=== PATIENT | male | born 1975 | race Caucasian/White ===

== ENCOUNTER 2024-07-26 11:08 | Inpatient (IN) ==
--- NOTE | 2024-07-26 11:33 | Emergency Department Note ---
Impression & Plan Atrial flutter with rapid ventricular response, Hypertension, Bilateral lower extremity edema ED Provider Note NAME: DEWEY US AGE: 48 SEX: M : 1975 ARRIVES VIA: Walk-In INFORMANT: Patient ED PROVIDER(S): Tanvir Strickland MD CHIEF COMPLAINT: Fast heart rate, referred PLAN: Disposition: Admit MEDICAL DECISION MAKING: The patient is a pleasant 48-year-old gentleman with a past medical history of hypertension who presents to the emergency department via walk-in accompanied by his referred by his PCP office for new onset atrial flutter with heart in the 160s in the setting of patient reporting generalized fatigue and noting swelling in his legs over the past couple weeks. Patient denies any sensation of palpitations, dizziness, chest pain. He denies any fevers, chills, cough, congestion, GI or symptoms. Patient reports he does consume alcohol in varying amounts and frequency. He reports that he has never experienced any withdrawal symptoms and has in the past year been able to go to days and up to a week without drinking any alcohol. Patient does report that he does regularly drink caffeine containing energy drinks. On evaluation the patient is in no distress, afebrile heart in the 160s and blood pressure 160s 120s and vital signs otherwise stable. He exhibits 1+ bilateral lower extremity pitting edema. Lungs are clear. EKG demonstrates atrial flutter with 2:1 AV conduction without overt acute ischemia. CXR with mild interstitial thickening suggestive of mild pulmonary edema in the setting of atrial flutter with RVR, per my personal preliminary review/interpretation. WBC within normal limits. H/H and platelets within normal limits. Chemistry without metabolic acidosis. Magnesium 1.5 with IV repletion initiated. Positivity troponin 8.7, within normal limits. BNP 108, nonspecific and marginally above upper limit of normal in the setting of the patient's atrial flutter with RVR. TSH within normal limits. Treatment was initiated with 5 mg of IV Lopressor x 3 without improvement in rate. Thus, patient was given 10 mg bolus of diltiazem and diltiazem drip initiated. Given the patient's new onset atrial flutter with RVR occurs in the setting of the patient not feeling any heart racing or palpitations unclear duration of this new arrhythmia. Patient does report some new symptoms of fatigue and leg swelling over the past couple weeks and so may at least be ongoing for that duration. Given the patient's blood pressure is stable no indication for emergent cardioversion. Heparin bolus and drip was ordered. Given patient's report of alcohol use with varying frequency and amounts IV thiamine was ordered. Additionally given 1 mg of IV Ativan given history of caffeine intake. Patient and his agree with plan for admission for further management. Case was discussed with Dr. Kam ROSENBAUM admitting resident, with JAYDON Stovall hospitalist who will evaluate the patient for admission. Further management per admitting team. Triage Nursing notes reviewed and agree them. Prior/external medical records reviewed Vital Signs: reviewed Differential diagnosis: Premature contractions, electrolyte abnormality, cardiac dysrhythmia, thyroid dysfunction, pulmonary embolism, infection, gastrointestinal, as well as other pathologies. ER treatment provided: See below. Diagnostics interpreted by me: ECG: Atrial flutter with 2: 1 AV conduction, nonspecific interventricular conduction delay, nonspecific T wave abnormality, no overt ST elevation or depression, QTc 403, QRS 124 Cardiac Monitoring: An order for continuous cardiac monitoring was placed and demonstrated Atrial flutter with 2: 1 AV conduction Laboratory studies: See below Imaging studies: See below Consultation(s): Dr. Kam ROSENBAUM admitting resident, with JAYDON Stovall hospitalist. HPI: Per MDM. ROS: See above HPI for pertinent positives & negatives. A total of 10 systems reviewed and were otherwise negative. VITALS:See Below PHYSICAL EXAMINATION: GENERAL: Awake, alert, in no distress, BMI 36.0. HENT: Normocephalic, atraumatic. Oropharynx unremarkable. EYES: Normal conjunctiva. Sclera non-icteric. NECK: Supple. No nuchal rigidity. FROM. No JVD. RESPIRATORY: Clear to auscultation. CARDIAC: Tachycardic rate, regular rhythm. Extremities warm and well perfused. Pulses equal. ABDOMEN: Soft, non-distended. No tenderness to palpation. No rebound or guarding. No masses. MUSCULOSKELETAL: Chest examination reveals no tenderness. The back is symmetrical on inspection without obvious abnormality. There is no CVA tenderness to palpation. No joint edema. LOWER EXTREMITIES: Calves are equal size bilaterally and non-tender. 1+ BLE edema. No discoloration. NEURO: Normal sensorium. No sensory or motor deficits noted. SKIN: No rash or jaundice noted. ED COURSE: Critical Care: I have personally spent greater than 45 minutes of critical care time in the direct management of this patient. This includes bedside care, interpretation of diagnostic studies, and testing, discussion with consultants, patient, and family members, and other required patient management activities. 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 Beliefs That Will Affect Care: None Current Living Situation: Spouse Other Information That Helps Us Care for You: No Feels Safe at Home: Yes Safety Concerns: Feels Safe At This Time Assistive Devices: None Allergies Allergies Allergy/AdvReac Type Severity Reaction Status Date / Time No Known Allergies Allergy Mild Unverified 10/05/06 15:44 Home Meds Home Medications Medication Instructions Recorded Confirmed lisinopril 20 mg tablet 20 mg PO DAILY 07/26/24 07/26/24 Results & Data (ED) Vital Signs Vital Signs - 24 hr 07/26/24 11:37 07/26/24 11:37 07/26/24 11:38 Pulse Rate 163 H Pulse Rate [Apical] 163 H Respiratory Rate 22 22 Respiratory Effort / Characteristics Non-Labored Respiratory Depth Normal Respiratory Pattern Regular Blood Pressure Blood Pressure [Right Arm] 163/119 H Blood Pressure Mean Blood Pressure Mean [Right Arm] 133 Pulse Oximetry 96 96 96 Oxygen Delivery Method Room Air Room Air Room Air 07/26/24 11:42 07/26/24 11:42 07/26/24 12:00 Pulse Rate 163 H 164 H 161 H Pulse Rate [Apical] Respiratory Rate 23 Respiratory Effort / Characteristics Respiratory Depth Respiratory Pattern Blood Pressure 163/119 H 143/101 H Blood Pressure [Right Arm] Blood Pressure Mean 122 Blood Pressure Mean [Right Arm] Pulse Oximetry 94 Oxygen Delivery Method 07/26/24 12:03 07/26/24 12:08 07/26/24 12:23 Pulse Rate 162 H 162 H 160 H Pulse Rate [Apical] Respiratory Rate Respiratory Effort / Characteristics Respiratory Depth Respiratory Pattern Blood Pressure 140/101 H 143/101 H 139/115 H Blood Pressure [Right Arm] Blood Pressure Mean Blood Pressure Mean [Right Arm] Pulse Oximetry Oxygen Delivery Method 07/26/24 12:24 07/26/24 12:30 07/26/24 13:00 Pulse Rate 160 H 158 H 157 H Pulse Rate [Apical] Respiratory Rate 23 Respiratory Effort / Characteristics Respiratory Depth Respiratory Pattern Blood Pressure 139/115 H 145/103 H 172/127 H Blood Pressure [Right Arm] Blood Pressure Mean 105 Blood Pressure Mean [Right Arm] Pulse Oximetry 95 Oxygen Delivery Method 07/26/24 13:15 07/26/24 13:30 07/26/24 13:45 Pulse Rate 157 H 157 H 158 H Pulse Rate [Apical] Respiratory Rate 28 H 18 24 Respiratory Effort / Characteristics Respiratory Depth Respiratory Pattern Blood Pressure 132/104 H 130/102 H 130/98 Blood Pressure [Right Arm] Blood Pressure Mean 114 114 108 Blood Pressure Mean [Right Arm] Pulse Oximetry 95 94 95 Oxygen Delivery Method Laboratory Data Attestation: I reviewed the patient's lab results. 07/27/24 03:20 07/27/24 03:20 Lab Results 07/26/24 07/26/24 Range/Units 11:28 12:45 WBC 9.22 (4.8-10.8) K/ul RBC 4.63 L (4.70-6.10) M/uL Hgb 15.0 (14.0-18.0) g/dl Hct 43.9 (42.0-52.0) % MCV 94.8 (80.0-100.0) fL MCH 32.4 (25.0-34.0) pg MCHC 34.2 (32.0-36.0) g/dL RDW Std Deviation 48.3 H (36.4-46.3) fL RDW Coeff of Derik 13.8 (11.5-14.5) % Plt Count 164 (130-400) K/uL MPV 11.7 (9.4-12.4) fL Immature Gran % (Auto) 0.4 % Neut % (Auto) 73.0 % Lymph % (Auto) 16.7 % [place] % (Auto) 8.2 % Eos % (Auto) 1.4 % Baso % (Auto) 0.3 % Neut # (Auto) 6.72 H (1.40-6.50) K/uL Lymph # (Auto) 1.54 (1.20-3.40) K/uL [place] # (Auto) 0.76 H (0.11-0.59) K/uL Eos # (Auto) 0.13 (0.00-0.50) K/uL Baso # (Auto) 0.03 (0.00-0.20) K/uL Immature Gran # (Auto) 0.04 (0.01-0.20) K/uL PT 11.1 (9.0-12.0) Seconds INR 1.0 (0.9-1.1) APTT 25 (21-31) Seconds PTT Ratio 0.9 Sodium 142 (136-145) mmol/L Potassium 4.0 (3.5-5.1) mmol/L Chloride 106 (98-107) mmol/L Carbon Dioxide 28 (21-32) mmol/L Anion Gap 8 (3-11) BUN 10 (6-23) mg/dl Creatinine 1.02 (0.6-1.4) mg/dl Est Cr Clr Drug Dosing 107.5 ml/min eGFR 90.10 BUN/Creatinine Ratio 9.8 L (10-20) Glucose 111 H (70-99(Fasting)) mg/dl Calcium 9.0 (8.6-10.3) mg/dl Phosphorus 3.6 (2.5-4.9) mg/dl Magnesium 1.5 L (1.7-2.4) mg/dl Total Bilirubin 0.9 (0.2-1.0) mg/dl AST 38 (13-39) U/L ALT 48 (7-52) U/L Alkaline Phosphatase 69 (34-104) U/L Troponin I High Sens 8.7 (0-20) pg/ml B-Natriuretic Peptide 108 H (0-100) pg/ml Total Protein 7.0 (6.0-8.3) gm/dl Albumin 4.4 (3.4-5.0) gm/dl Globulin 2.6 (2.5-4.0) gm/dl Albumin/Globulin Ratio 1.7 (0.9-2) TSH 0.763 (0.300-4.500) uIu/ml Ethyl Alcohol mg/dL < 10.0 (<10.0) mg/dl Administered Medications Heparin Sodium/Dextrose (Heparin 06507 Unit/500 Ml D5w) 25,000 units in 500 mls @ 24 mls/hr IV .[id number] LIVE; Protocol Stop: 08/25/24 13:44 Last Titration: 07/27/24 07:14 Dose: 1,200 units/hr, 24 mls/hr Documented By: [facility] Co-signed By: CONNIE Titration: 07/27/24 04:27 Dose: 1,200 units/hr, 24 mls/hr Documented By: [facility] Co-signed By: ALMAZ Titration: 07/26/24 21:11 Dose: 1,100 units/hr, 22 mls/hr Documented By: [facility] Co-signed By: ALMAZ Titration: 07/26/24 19:07 Dose: 1,000 units/hr, 20 mls/hr Documented By: [facility] Co-signed By: ALINA Admin: 07/26/24 13:44 Dose: 1,000 units/hr, 20 mls/hr Documented By: REGINE Co-signed By: JAZIEL Amiodarone HCl/Dextrose (Nexterone / D5w) 360 mg in 200 mls @ 16.667 mls/hr IV .Q12H [facility] Stop: 08/25/24 23:29 Last Admin: 07/27/24 00:02 Dose: 0.5 mg/min, 16.7 mls/hr Documented By: [facility] Co-signed By: ALMAZ Lisinopril (Lisinopril 20 Mg Tab) 20 mg PO DAILY [facility] Stop: 08/26/24 08:59 Last Admin: 07/27/24 10:09 Dose: 20 mg Documented By: CONNIE Miscellaneous (Remove Nicoderm Patch) 1 each N/A DAILY@0859 [facility] Stop: 08/26/24 08:58 Last Admin: 07/27/24 09:43 Dose: 1 each Documented By: CONNIE Nicotine (Nicotine 21 Mg/24 Hr Tdsy) 1 patch TD QAM [facility] Stop: 08/25/24 14:29 Last Admin: 07/27/24 10:09 Dose: 1 patch Documented By: Admin: 07/26/24 17:47 Dose: 1 patch Documented By: JOCELIN Discontinued Medications Amiodarone HCl (Amiodarone Iv Bolus & Drip) 1 each IV NOW STA; Protocol Stop: 07/26/24 17:25 Last Admin: 07/26/24 17:47 Dose: 1 each Documented By: JOCELIN Diltiazem HCl (Diltiazem Hcl 5 Mg/Ml 5 Ml Vial) 10 mg IV NOW STA Stop: 07/26/24 12:39 Last Admin: 07/26/24 12:49 Dose: 10 mg Documented By: REGINE Co-signed By: CAP Furosemide (Furosemide Inj 20 Mg/2 Ml Vial) 20 mg IV ONE ONE Stop: 07/27/24 09:22 Last Admin: 07/27/24 10:12 Dose: 20 mg Documented By: CONNIE Heparin Sodium (Porcine) (Heparin Sod (Porcine) 1000 Unit/Ml) 4,000 units IV NOW ONE Stop: 07/26/24 13:40 Last Admin: 07/26/24 13:43 Dose: 4,000 units Documented By: REGINE Co-signed By: JAZIEL Heparin Sodium/Dextrose (Heparin Iv Adult Wt-Based Low-Dose W/ Initial Bolus Protocol) 1 each IV NOW STA; Protocol Stop: 07/26/24 13:25 Last Admin: 07/26/24 13:24 Dose: 1 each Documented By: JOCELIN Hydroxyzine HCl (Hydroxyzine Hcl 25 Mg Tab) 25 mg PO NOW STA Stop: 07/26/24 19:27 Last Admin: 07/26/24 19:37 Dose: 25 mg Documented By: NATHALY Diltiazem HCl 125 mg/ Dextrose 125 mls @ 5 mls/hr IV .Q24H LIVE; Protocol Stop: 08/25/24 12:44 Last Titration: 07/26/24 17:59 Dose: Infused Documented By: JOCELIN Co-signed By: VERÓNICAM Titration: 07/26/24 14:22 Dose: 15 mg/hr, 15 mls/hr Documented By: REGINE Co-signed By: NORY Titration: 07/26/24 13:24 Dose: 10 mg/hr, 10 mls/hr Documented By: REGINE Co-signed By: DAVID Admin: 07/26/24 12:57 Dose: 5 mg/hr, 5 mls/hr Documented By: REGINE Co-signed By: SW Thiamine HCl 500 mg/ Sodium (Chloride) 55 mls @ 210 mls/hr IV NOW STA Stop: 07/26/24 12:54 Last Admin: 07/26/24 13:44 Dose: Not Given Documented By: REGINE Magnesium Sulfate/Dextrose (Magnesium Sulfate / D5w) 1 gm in 100 mls @ 100 mls/hr IV Q1H LIVE Stop: 07/26/24 14:38 Last Infusion: 07/26/24 15:00 Dose: Infused Documented By: Admin: 07/26/24 13:52 Dose: 100 mls/hr Documented By: Infusion: 07/26/24 13:48 Dose: Infused Documented By: Admin: 07/26/24 12:48 Dose: 100 mls/hr Documented By: REGINE Amiodarone HCl/Dextrose (Nexterone / D5w) 150 mg in 100 mls @ 600 mls/hr IV NOW STA Stop: 07/26/24 17:33 Last Infusion: 07/26/24 17:55 Dose: Infused Documented By: JOCELIN Co-signed By: ALINA Admin: 07/26/24 17:41 Dose: 600 mls/hr Documented By: JOCELIN Co-signed By: ALINA Amiodarone HCl/Dextrose (Nexterone / D5w) 360 mg in 200 mls @ 33.333 mls/hr IV ONE ONE Stop: 07/26/24 23:33 Last Infusion: 07/27/24 00:02 Dose: Infused Documented By: NATHALY Co-signed By: ALMAZ Admin: 07/26/24 17:55 Dose: 1 mg/min, 33.3 mls/hr Documented By: JOCELIN Co-signed By: ALINA Magnesium Sulfate/Dextrose (Magnesium Sulfate / D5w) 1 gm in 100 mls @ 50 mls/hr IV ONE ONE Stop: 07/26/24 23:21 Last Infusion: 07/26/24 23:40 Dose: Infused Documented By: Admin: 07/26/24 21:35 Dose: 50 mls/hr Documented By: NATHALY Amiodarone HCl/Dextrose (Nexterone / D5w) 150 mg in 100 mls @ 600 mls/hr IV NOW STA Stop: 07/26/24 22:51 Last Infusion: 07/26/24 23:08 Dose: Infused Documented By: NATHALY Co-signed By: ALMAZ Admin: 07/26/24 22:57 Dose: 600 mls/hr Documented By: NATHALY Co-signed By: MICHELLE Magnesium Sulfate/Dextrose (Magnesium Sulfate / D5w) 1 gm in 100 mls @ 50 mls/hr IV ONE ONE Stop: 07/27/24 09:56 Last Admin: 07/27/24 09:43 Dose: 50 mls/hr Documented By: CONNIE Amiodarone HCl/Dextrose (Nexterone / D5w) 150 mg in 100 mls @ 600 mls/hr IV NOW STA Stop: 07/27/24 09:49 Last Infusion: 07/27/24 10:19 Dose: Infused Documented By: CONNIE Co-signed By: FRANCES Admin: 07/27/24 09:43 Dose: 600 mls/hr Documented By: CONNIE Co-signed By: FRANCES Lorazepam (Lorazepam 2 Mg/1 Ml Vial) 1 mg IV NOW STA Stop: 07/26/24 13:12 Last Admin: 07/26/24 13:20 Dose: 1 mg Documented By: REGINE Metoprolol Tartrate (Metoprolol Tartrate 1 Mg/Ml Vial) 5 mg IV NOW STA Stop: 07/26/24 11:40 Last Admin: 07/26/24 11:42 Dose: 5 mg Documented By: REGINE Metoprolol Tartrate (Metoprolol Tartrate 1 Mg/Ml Vial) 5 mg IV NOW STA Stop: 07/26/24 12:05 Last Admin: 07/26/24 12:08 Dose: 5 mg Documented By: REGINE Metoprolol Tartrate (Metoprolol Tartrate 1 Mg/Ml Vial) 5 mg IV NOW STA Stop: 07/26/24 12:15 Last Admin: 07/26/24 12:24 Dose: 5 mg Documented By: REGINE Miscellaneous (Stat Iv Infusion Titration Per Protocol) 1 each N/A NOW STA Stop: 07/26/24 17:25 Last Admin: 07/26/24 18:00 Dose: 1 each Documented By: JOCELIN Imaging Data Radiologist's Impression: Chest X-Ray 07/26/24 11:16 XR chest 1V portable HISTORY: 48 years-old Male Chest pain, nonspecific COMPARISON: None TECHNIQUE: AP view of the chest FINDINGS: Cardiac silhouette is enlarged. Pulmonary vascular congestion. Probable trace pleural effusions with interstitial coarsening. No pneumothorax. Bones appear grossly intact. IMPRESSION: Cardiomegaly with suggestion of mild interstitial pulmonary edema and probable trace pleural effusions. ACT 112: Negative or not required by law. The above report was generated using voice recognition software. It may contain grammatical, syntax or spelling errors. Electronically signed by: Skyler Enamorado M.D. 07/26/2024 12:45 PM Discharge Plan Visit Data Chief Complaint: Tachycardia Stated Complaint: HIGH HEART RATE ED Provider: Tanvir Strickland Discharge Problem: Atrial flutter with rapid ventricular response, Hypertension, Bilateral lower extremity edema Patient Disposition: Admitted As Inpatient Discharge Instructions Interventions: ED Discharge Assessment Last Done: 07/26/24 14:30 Discharge Problem: Hypertension Qualifiers: Hypertension type: unspecified Qualified Code(s): I10 - Essential (primary) hypertension
[2024-07-26] MEDS: METOPROLOL TARTRATE 1 MG/ML VIAL IV STA ×3 (11:42→12:24)
[2024-07-26 11:45] LABS: Basophils # (auto) 0.03 K/uL (0.00-0.20); Basophils % (auto) 0.3 %; Eosinophils # (auto) 0.13 K/uL (0.00-0.50); Eosinophils % (auto) 1.4 %; Hematocrit (blood only) 43.9 % (42.0-52.0); Immature Granulocytes # (auto) 0.04 K/uL (0.01-0.20); Immature Granulocytes % (auto) 0.4 %; Lymphocytes # (auto) 1.54 K/uL (1.20-3.40); Lymphocytes % (auto) 16.7 %; Mean Corpuscular Hemoglobin 32.4 pg (25.0-34.0); Mean Corpuscular Hgb Conc 34.2 g/dL (32.0-36.0); Mean Corpuscular Volume 94.8 fL (80.0-100.0); Mean Platelet Volume 11.7 fL (9.4-12.4); Monocytes # (auto) 0.76 K/uL (0.11-0.59); Monocytes % (auto) 8.2 %; Neutrophils # (auto) 6.72 K/uL (1.40-6.50); Platelet Count 164 K/uL (130-400); RDW Coefficient of Variation 13.8 % (11.5-14.5); RDW Standard Deviation 48.3 fL (36.4-46.3); Red Blood Count 4.63 M/uL (4.70-6.10); White Blood Count 9.22 K/ul (4.8-10.8)
[2024-07-26 12:12] LABS: Partial Thromboplastin Ratio 0.9; Partial Thromboplastin Time 25 Seconds (21-31); Prothrombin Time 11.1 Seconds (9.0-12.0)
[2024-07-26 12:17] LABS: Albumin Globulin Ratio 1.7 (0.9-2); Albumin Level 4.4 gm/dl (3.4-5.0); BUN Creatinine Ratio 9.8 (10-20); Bilirubin,Total 0.9 mg/dl (0.2-1.0); Creatinine Clr Calc Pharmacy 107.5 ml/min; Globulin 2.6 gm/dl (2.5-4.0); Magnesium 1.5 mg/dl (1.7-2.4); Phosphorus 3.6 mg/dl (2.5-4.9)
[2024-07-26 12:23] LABS: Troponin I High Sensitivity 8.7 pg/ml (0-20)
[2024-07-26 12:32] LABS: Thyroid Stimulating Hormone 0.763 uIu/ml (0.300-4.500)
[2024-07-26] MEDS ORDERED: STAT IV Infusion **Titration per Protocol STA (12:38)
--- NOTE | 2024-07-26 12:46 | XRay Report ---
XR chest 1V portable HISTORY: 48 years-old Male Chest pain, nonspecific COMPARISON: None TECHNIQUE: AP view of the chest FINDINGS: Cardiac silhouette is enlarged. Pulmonary vascular congestion. Probable trace pleural effusions with interstitial coarsening. No pneumothorax. Bones appear grossly intact. IMPRESSION: Cardiomegaly with suggestion of mild interstitial pulmonary edema and probable trace pleu ral effusions. ACT 112: Negative or not required by law. The above report was generated using voice recognition software. It may contain grammatical, syntax o r spelling errors. Electronically signed by: Skyler Enamorado M.D. 07/26/2024 12:45 PM
[2024-07-26] MEDS: MAGNESIUM SULFATE / D5W 1 GM/100 ML BAG IV SCH (12:48)
[2024-07-26] MEDS: dilTIAZem HCl 5 MG/ML 5 ML VIAL IV STA (12:49)
[2024-07-26] MEDS: dilTIAZem HCL 125 MG in DEXTROSE 5% 100 ML IV SCH (12:57)
[2024-07-26] MEDS: LORazepam 2 MG/1 ML VIAL IV STA (13:20)
[2024-07-26] MEDS: Heparin IV Adult Wt-Based Low-Dose w/ INITIAL Bolus Protocol IV STA (13:24)
[2024-07-26] MEDS ORDERED: HEPARIN SOD (PORCINE) 1000 UNIT/ML IV ONE (13:39)
[2024-07-26] MEDS: HEPARIN SOD (PORCINE) 1000 UNIT/ML IV ONE (13:43)
[2024-07-26] MEDS: THIAMINE HCL 500 MG in SODIUM CHLORIDE 0.9% 50 ML IV STA (13:44)
[2024-07-26] MEDS: HEPARIN 25000 UNIT/500 ML D5W 25,000 UNITS/500 ML BAG IV SCH (13:44)
[2024-07-26] MEDS ORDERED: LORazepam 2 MG/1 ML VIAL IV PRN (14:24)
[2024-07-26] MEDS ORDERED: NICOTINE POLACRILEX 2 MG GUM MT PRN (14:24)
--- NOTE | 2024-07-26 15:02 | History & Physical Report ---
Date of Service July 26, 2024 Assessment & Plan (1) Atrial flutter: (2) Hypertension: Plan 48 yr M with PMHx of HTN presenting to the ED with incidental finding of tachycardia during PCP visit, ECG revealing atrial flutter. Currently asymptomatic. BNP 108. Negative troponin. Normal TSH. CXR with cardiomegaly, pulmonary edema. 80 pack yr smoking hx. 2 energy drinks per day. Unclear alcohol drinking history, at least 1 beer per day. #Atrial Flutter - ECG: atrial flutter 2:1 AV conduction - CXR: cardiomegaly, mild pulmonary edema, possible trace pleural effusions - BNP 108 - negative troponin - PT/INR/PTT WNL - inadequate rate control with IV metoprolol in ED - pending TTE - pending lipid profile - cardiology consult appreciated - anticoagulation with IV heparin drip - rate control with 125 mg IV Cardizem drip #Nicotine Withdrawal - 2 packs/day for 40 yrs - administered nicotine patch for withdrawal symptoms #Alcohol Withdrawal - unclear drinking history - monitoring with AWSS - IV lorazepam PRN for withdrawal symptoms per protocol #HTN - BP elevated - continue lisinopril 20 mg History of Present Illness Chief Complaint: incidental finding of elevated HR in 160s during PCP visit Primary Care Provider: Jay Vega PA-C 48 yr M with PMHx of HTN presenting to the ED with incidental finding of HR in the 160s during PCP visit, with ECG showing atrial flutter. Patient is currently asymptomatic and denies chest pain, lightheadedness, and palpitations. Over the last 3 days, he mentions feeling more fatigued, and having to take more naps throughout the day. He mentions shortness of breath when lying down flat that improves when sitting up, and a 2 week hx of bilateral ankle swelling. His mentions he has not been feeling like himself since the beginning of May. He denies hx of cardiac issues outside of HTN, but notes his father had HTN and atrial flutter. 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 He drinks 2 energy drinks per day. Has been smoking 2 packs per day for the last 40 years. He mentions he drinks "1 beer on most days, many more on others, and none at all on some days." Patient was treated in the ED with three doses of IV metoprolol 5 mg each for rate control, but remained in atrial flutter with HR in the high 150s Allergies Allergy/AdvReac Type Severity Reaction Status Date / Time No Known Allergies Allergy Mild Unverified 10/05/06 15:44 Home Medications Medication Instructions Recorded Confirmed Type lisinopril 20 mg tablet 20 mg PO DAILY 07/26/24 07/26/24 History Past Med/Surg History Problem List (Updated 07/26/24 @ 14:59 by Kathryn Valero) Hypertension (Acute) Atrial flutter (Acute) Social History Smoking Status: Current every day smoker Preferred Language: Kazakh Feels Safe at Home: Yes Review of Systems 2 Review of Systems: All systems reviewed & are unremarkable except as noted in HPI & below Physical Exam Constitutional: WD/WN, vitals as above Eyes: PERRL, conjunctivae normal, anicteric sclerae Respiratory: normal respiratory effort wheezing bilaterally Cardiovascular: Rate/Rhythm: regular rhythm and + tachycardic bilateral ankle 2+ edema Gastrointestinal (Abdomen): normal bowel sounds, soft, nontender, no hepatosplenomegaly Results & Data Results & Data Vital Signs (Past 12 Hours) Vital Signs Temp Pulse Pulse Resp BP BP Pulse Ox 07/26/24 14:16 158 H 23 141/105 H 94 07/26/24 14:00 158 H 21 119/95 94 07/26/24 13:45 158 H 24 130/98 95 07/26/24 13:30 157 H 18 130/102 H 94 07/26/24 13:15 157 H 28 H 132/104 H 95 07/26/24 13:00 157 H 172/127 H 07/26/24 12:30 158 H 23 145/103 H 95 07/26/24 12:24 160 H 139/115 H 07/26/24 12:23 160 H 139/115 H 07/26/24 12:08 162 H 143/101 H 07/26/24 12:03 162 H 140/101 H 07/26/24 12:00 161 H 23 143/101 H 94 07/26/24 11:42 164 H 07/26/24 11:42 163 H 163/119 H 07/26/24 11:38 96 07/26/24 11:37 163 H 22 96 07/26/24 11:37 163 H 22 163/119 H 96 07/26/24 11:13 37 C 164 H 18 162/126 H 96 O2 Del Method 07/26/24 14:16 07/26/24 14:00 07/26/24 13:45 07/26/24 13:30 07/26/24 13:15 07/26/24 13:00 07/26/24 12:30 07/26/24 12:24 07/26/24 12:23 07/26/24 12:08 07/26/24 12:03 07/26/24 12:00 07/26/24 11:42 07/26/24 11:42 07/26/24 11:38 Room Air 07/26/24 11:37 Room Air 07/26/24 11:37 Room Air 07/26/24 11:13 Room Air Supervising Physician Co-Signing Physician Notes ATTESTATION I also saw the patient with the resident and medical student and confirmed huntley portions of the history and exam. I agree with the impression and plan in the resident documentation, and as summarized below. 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 He really is not aware of his tachycardia, so it is difficult to pinpoint onset. He does endorse about a two-week history of increased fatigue, although no sensation of his elevated HR or palpitations. Smokes about 2 ppd and consumes 2 energy drinks. EXAM Rates about 160 BP 136/100 A/O, NAD. CV rate c/w that on monitor, regular Respirations non labored, Lungs CTA ABD non tender B/ LE edema at ankles DATA Labs Hgb 15 Mg 1.5 BNP 108 Imaging CXR with cardiomegaly; trace effusions, mild edema IMPRESSION & PLAN A-flutter Tobacco Abuse HTN ETOH use Appreciate cardiology input Heparin GTT Cardizem GTT and titrate Echocardiogram Nicotine replacement while admitted; encourage Tobacco cessation AWSS protocol while admitted; encourage reduction in ETOH Discussed limitation of caffeine containing beverages Lipid profile and A1c to completed CV risk assessment Additional per resident documentation
[2024-07-26] MEDS ORDERED: ACETAMINOPHEN 325 MG TAB PO PRN (16:12)
[2024-07-26] MEDS ORDERED: ONDANSETRON INJ 2 MG/ML 2 ML VIAL IV PRN (16:12)
[2024-07-26] MEDS ORDERED: ALUMINUM/MAGNESIUM SUSP 30 ML UDC PO PRN (16:12)
[2024-07-26] MEDS ORDERED: MAGNESIUM HYDROXIDE SUSP 30 ML UDC PO PRN (16:12)
[2024-07-26] MEDS ORDERED: POLYETHYLENE (MIRALAX) 17 GM PACK PO PRN (16:12)
[2024-07-26] MEDS ORDERED: 0.2 MICRON FILTER SET 1 EACH IV STA (17:24)
[2024-07-26] MEDS: AMIODARONE / D5W 150 MG/100 ML BAG IV STA ×2 (17:41→22:57)
[2024-07-26] MEDS: NICOTINE 21 MG/24 HR TDSY TD SCH (17:47)
[2024-07-26] MEDS: AMIODARONE IV BOLUS & DRIP IV STA (17:47)
[2024-07-26] MEDS: AMIODARONE / D5W 360 MG/200 ML BAG IV ONE (17:55)
[2024-07-26] MEDS: STAT IV Infusion **Titration per Protocol STA (18:00)
[2024-07-26] MEDS: hydrOXYzine HCl 25 MG TAB PO STA (19:37)
[2024-07-26] MEDS: MAGNESIUM SULFATE / D5W 1 GM/100 ML BAG IV ONE (21:35)
[2024-07-26] MEDS ORDERED: 0.2 MICRON FILTER SET 1 EACH IV ONE (22:42)
[2024-07-27] MEDS: AMIODARONE / D5W 360 MG/200 ML BAG IV SCH (00:02)
[2024-07-27 03:48] LABS: Basophils # (auto) 0.04 K/uL (0.00-0.20); Basophils % (auto) 0.5 %; Eosinophils % (auto) 2.5 %; Hematocrit (blood only) 39.8 % (42.0-52.0); Hemoglobin 13.7 g/dl (14.0-18.0); Immature Granulocytes # (auto) 0.03 K/uL (0.01-0.20); Immature Granulocytes % (auto) 0.4 %; Lymphocytes # (auto) 1.63 K/uL (1.20-3.40); Mean Corpuscular Hemoglobin 32.5 pg (25.0-34.0); Mean Corpuscular Hgb Conc 34.4 g/dL (32.0-36.0); Mean Corpuscular Volume 94.3 fL (80.0-100.0); Mean Platelet Volume 12.1 fL (9.4-12.4); Monocytes # (auto) 0.67 K/uL (0.11-0.59); Monocytes % (auto) 8.2 %; Neutrophils # (auto) 5.56 K/uL (1.40-6.50); Neutrophils % (auto) 68.4 %; Platelet Count 141 K/uL (130-400); RDW Coefficient of Variation 13.9 % (11.5-14.5); RDW Standard Deviation 48.5 fL (36.4-46.3); Red Blood Count 4.22 M/uL (4.70-6.10); White Blood Count 8.13 K/ul (4.8-10.8)
[2024-07-27 04:05] LABS: Albumin Globulin Ratio 1.7 (0.9-2); Albumin Level 3.8 gm/dl (3.4-5.0); BUN Creatinine Ratio 13.6 (10-20); Bilirubin,Total 0.6 mg/dl (0.2-1.0); Calcium 8.4 mg/dl (8.6-10.3); Chol HDL Ratio 3.2 (0-5); Creatinine Clr Calc Pharmacy 106.3 ml/min; Globulin 2.3 gm/dl (2.5-4.0); Magnesium 1.9 mg/dl (1.7-2.4); Potassium 4.2 mmol/L (3.5-5.1); Total Protein 6.1 gm/dl (6.0-8.3)
[2024-07-27] MEDS ORDERED: 0.2 MICRON FILTER SET 1 EACH IV ONE (09:21)
[2024-07-27] MEDS: AMIODARONE / D5W 150 MG/100 ML BAG IV STA (09:43)
[2024-07-27] MEDS: MAGNESIUM SULFATE / D5W 1 GM/100 ML BAG IV ONE (09:43)
[2024-07-27] MEDS: lisinopril 20 MG TAB PO SCH (10:09)
[2024-07-27] MEDS: FUROSEMIDE INJ 20 MG/2 ML VIAL IV ONE (10:12)
[2024-07-27 11:00] LABS: ANTI-Xa, UFH(UnfractionatedHep 0.23 IU/ml (0.3-0.7)
[2024-07-27 11:08] LABS: Estimated Average Glucose 117 mg/dl; Hemoglobin A1C 5.7 % (4.5-5.6)
--- NOTE | 2024-07-27 11:36 | Hospitalist Progress Note ---
Date of Service July 27, 2024 Assessment & Plan (1) Atrial flutter: (2) Hypertension: Plan 48 yr M with PMHx of HTN presenting to the ED with incidental finding of tachycardia during PCP visit, ECG revealing atrial flutter. Currently asymptomatic. BNP 108. Negative troponin. Normal TSH. CXR with cardiomegaly, pulmonary edema. 80 pack yr smoking hx. 2 energy drinks per day. Unclear alcohol drinking history, at least 1 beer per day. #Atrial Flutter - ECG: atrial flutter 2:1 AV conduction - CXR: cardiomegaly, mild pulmonary edema, possible trace pleural effusions - BNP 108 - negative troponin - PT/INR/PTT WNL - lipid and cholesterol profile WNL - anticoagulation with IV heparin drip - inadequate rate control with IV metoprolol in ED, and Cardizem drip on 07/26 - patient received 3 boluses of IV amiodarone 150 mg and 2 infusions of IV amiodarone 360 mg over last 24 hours - patient received 3 doses of 1g IV magnesium sulfate over last 24 hours - administer 20 mg IV furosemide for pulmonary + peripheral edema - cardiology consult appreciated - pending TTE #Nicotine Withdrawal - 2 packs/day for 40 yrs - administered nicotine patch for withdrawal symptoms #Alcohol Withdrawal - unclear drinking history - monitoring with AWSS - IV lorazepam PRN for withdrawal symptoms per protocol #HTN - BP elevated - continue lisinopril 20 mg Admission and Anticipated Discharge Date Admission Date: July 26, 2024 Supervising Physician Co-Signing Physician Notes ATTESTATION I also saw the patient with the resident and medical student and confirmed huntley portions of the history and exam. I agree with the impression and plan in the resident documentation, and as summarized below. Patient remains in a-flutter with rates around 140s. Really no symptoms, he is not aware of is heart rate. Denies chest pain. He believes his LE edema (which he has noted for the last three weeks or so) is down a little this morning. EXAM Rates mid 140s BP 123/92 A/O, NAD. CV rate c/w that on monitor, regular Respirations non labored, Lungs CTA B/L LE edema at ankles DATA Labs Hgb 13.7 Mg 1.9 A1c = 5.7% Lipid profile 182/114/57 Imaging CXR with cardiomegaly; trace effusions, mild edema IMPRESSION & PLAN A-flutter Tobacco Abuse HTN ETOH use Discussed with cardiology, they will evaluate this afternoon Continue heparin GTT Rebolus with amiodarone Nicotine replacement while admitted; encourage Tobacco cessation AWSS protocol while admitted; encourage reduction in ETOH Discussed limitation of caffeine containing beverages Additional per resident documentation Subjective Patient is feeling well this morning. Mentions he was not able to sleep well last night. He mentions he is still asymptomatic and denies chest pain, palpitations, and lightheadedness. He mentions he will try to cut back on energy drinks, and try to stop smoking. Review of Systems Review of Systems: All systems reviewed & are unremarkable except as noted in HPI & below Physical Exam Constitutional: WD/WN, vitals as above Eyes: PERRL, conjunctivae normal, anicteric sclerae Respiratory: normal respiratory effort diminished lung sounds, bibasilar crackles Cardiovascular: Rate/Rhythm: regular rhythm and + tachycardic 2+ lower extremity edema b/l Gastrointestinal (Abdomen): normal bowel sounds, soft, nontender, no hepatosplenomegaly Results & Data Results & Data Vital Signs (Past 12 Hours) Vital Signs Temp Pulse Pulse Resp BP BP Pulse Ox 07/27/24 07:30 36.5 C 147 H 19 134/90 95 07/27/24 05:58 144 H 137/96 07/27/24 03:53 143 H 127/94 07/27/24 02:38 36.6 C 147 H 18 102/74 92 07/26/24 22:55 154 H 127/82 07/26/24 22:31 37.1 C 156 H 18 127/86 93 07/26/24 22:00 153 H O2 Del Method 07/27/24 07:30 Room Air 07/27/24 05:58 07/27/24 03:53 07/27/24 02:38 Room Air 07/26/24 22:55 07/26/24 22:31 Room Air 07/26/24 22:00
--- NOTE | 2024-07-27 14:54 | Cardiology Consultation ---
Date of Consultation July 27, 2024 Assessment & Plan (1) Atrial flutter with rapid ventricular response: (2) Atrial flutter: (3) CHF (congestive heart failure): (4) Hypertension: Plan Mr. 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 He mentioned that his legs had been swollen for about 2 weeks and he was markedly tachycardic. EKG confirmed Atrial Flutter with RVR. Referred to our ER and stated that over the preceding 3 days, he was feeling more fatigued and having to take more naps throughout the day. He also c omplained of shortness of breath when lying down flat that improves when sitting up, and a 2 week history of lower extremity edema. His stated that he has not been feeling like himself since the beginning of May 2024 -- so the onset of his atrial flutter is unknown. Patient has not had any sensation of palpitations or any hint that his heart is racing. He denies any exertional chest pain, heaviness, tightness, or pressure. He denies any neck, back, jaw,or arm pain. No syncope, near, weakness, dizziness, nausea, vomiting of diaphoresis. He denies any focal neurologic symptoms suggestive of stroke or near syncope. 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 He drinks 2 energy drinks per day. He has been smoking 2 packs per day for the last 40 years. He mentions he drinks "1 beer on most days, many more on others, and none at all on some days." Patient was treated in the ER with three doses of IV Metoprolol 5 mg each for rate control, but remained in atrial flutter with RVR. Started anticoagulation (Heparin Drip) on 07/26/24 at 1345. He has been treated with IV Lopressor which did not slow his rate, received IV Diltiazem which did not slow his rate. He is currently getting IV Amiodarone boluses x 3 on 07/26/24 and IV Amiodarone load. Remains in atrial flutter with 2:1 conduction, HR in the 140's to 150's. His lower extremity edema is improving and his breathing is approaching baseline. Recommend the followin. Amiodarone as per hospitalist. 2. Continue Heparin drip, convert to Eliquis or Xarelto at discharge. 3. IV Digoxin 500 mcg now, then eventually convert to oral Digoxin. 4. Assess heart rate response to Amiodarone + Digoxin, try to create 3:1 or 4:1 conduction. 5. If heart remains elevated, strongly consider CHARIS followed by atrial flutter ablation vs cardioversion. 6. If ventricular rate can be controlled, we will rate control and anticoagulate x 3.5 to 4 weeks and then do a cardioversion vs ablation. 7. Obtain transthoracic Echocardiogram, suspect he may have decreased LV systolic function/hypervolemia. We will continue to follow throughout this hospitalization and following discharge. History of Present Illness Reason for Consultation: -- Atrial Flutter with RVR. Requesting Physician: Nikolas Dinh DO Attending Physician: Gregorio Mohan MD History of Present Illness Mr. 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 He mentioned that his legs had been swollen for about 2 weeks and he was markedly tachycardic. EKG confirmed Atrial Flutter with RVR. Referred to our ER and stated that over the preceding 3 days, he was feeling more fatigued and having to take more naps throughout the day. He also complained of shortness of breath when lying down flat that improves when sitting up, and a 2 week history of lower extremity edema. His stated that he has not been feeling like himself since the beginning of May 2024 -- so the onset of his atrial flutter is unknown. Patient has not had any sensation of palpitations or any hint that his heart is racing. He denies any exertional chest pain, heaviness, tightness, or pressure. He denies any neck, back, jaw,or arm pain. No syncope, near, weakness, dizziness, nausea, vomiting of diaphoresis. He denies any focal neurologic symptoms suggestive of stroke or near syncope. 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 He drinks 2 energy drinks per day. Has been smoking 2 packs per day for the last 40 years. He mentions he drinks "1 beer on most days, many more on others, and none at all on some days." Patient was treated in the ER with three doses of IV Metoprolol 5 mg each for rate control, but remained in atrial flutter with RVR. Started anticoagulation (Heparin Drip) on 07/26/24 at 1345. He has been treated with IV Lopressor which did not slow his rate, received IV Diltiazem which did not slow his rate. He is currently getting IV Amiodarone boluses x 3 on 07/26/24 and IV Amiodarone load. Remains in atrial flutter with 2:1 conduction, HR in the 140's to 150's. His lower extremity edema is improving and his breathing is approaching baseline. Allergies Allergy/AdvReac Type Severity Reaction Status Date / Time No Known Allergies Allergy Mild Unverified 10/05/06 15:44 Home Medications Medication Instructions Recorded Confirmed Type lisinopril 20 mg tablet 20 mg PO DAILY 07/26/24 07/26/24 History Patient History Social History Smoking Status: Current every day smoker Tobacco Type: Cigarettes Cigarettes Per Day: 40; Tobacco Cessation Education Requested by Patient: No Hx Alcohol Use: Yes Alcohol type: beer Hx Substance Use: No Preferred Language: British Communication Ability: Effective Flat Polisher Required: No Beliefs That Will Affect Care: None Current Living Situation: Spouse Other Information That Helps Us Care for You: No Feels Safe at Home: Yes Safety Concerns: Feels Safe At This Time Assistive Devices: None Review of Systems Review of Systems: -- As per HPI. Physical Exam Physical Exam: Blood pressure 123/92, pulse 148 and regular. GENERAL: Patient in no acute distress. HEENT: Head is atraumatic, normocephalic. EOM's intact. Facies symmetric. No perioral cyanosis. NECK: No JVD. JVP is elevated. Carotid upstrokes are + 2 bilaterally without bruits. CHEST/LUNGS: Increased breath sounds in bilateral bases, otherwise clear. CVS: S1 and S2 are regular, tachycardic without murmurs, gallops, or rubs. PMI is nonpalpable. No lifts, heaves, or thrills. No abdominal aortic or renal bruits. ABDOMINAL EXAM: Bowel sounds are present. EXTREMITIES: No clubbing or cyanosis. +2 bilateral distal leg edema. Extremities are well perfused. NEUROLOGIC EXAM: Patient is awake, alert, and oriented. Pleasant and cooperative. Answers questions appropriately. Speech is clear. MEDICAL CLINIC MANAGER: -- Atrial flutter with 2:1 AV conduction at 148 bpm. Results & Data Vital Signs (Past 12 Hours) Vital Signs Temp Pulse Pulse Resp BP BP Pulse Ox 07/27/24 11:53 36.5 C 148 H 22 123/92 94 07/27/24 08:00 07/27/24 07:30 36.5 C 147 H 19 134/90 95 07/27/24 07:00 144 H 07/27/24 05:58 144 H 137/96 07/27/24 03:53 143 H 127/94 O2 Del Method 07/27/24 11:53 Room Air 07/27/24 08:00 Room Air 07/27/24 07:30 Room Air 07/27/24 07:00 07/27/24 05:58 07/27/24 03:53 Laboratory Results Laboratory Results - last 24 hr 07/26/24 07/27/24 07/27/24 20:15 03:20 10:31 WBC 8.13 RBC 4.22 L Hgb 13.7 L Hct 39.8 L MCV 94.3 MCH 32.5 MCHC 34.4 RDW Std Deviation 48.5 H RDW Coeff of Derik 13.9 Plt Count 141 MPV 12.1 Immature Gran % (Auto) 0.4 Neut % (Auto) 68.4 Lymph % (Auto) 20.0 Spink % (Auto) 8.2 Eos % (Auto) 2.5 Baso % (Auto) 0.5 Neut # (Auto) 5.56 Lymph # (Auto) 1.63 Spink # (Auto) 0.67 H Eos # (Auto) 0.20 Baso # (Auto) 0.04 Immature Gran # (Auto) 0.03 Heparin Anti-Xa, Unfract 0.20 L 0.20 L 0.23 L Sodium 139 Potassium 4.2 Chloride 106 Carbon Dioxide 26 Anion Gap 7 BUN 14 Creatinine 1.03 Est Cr Clr Drug Dosing 106.3 eGFR 89.05 BUN/Creatinine Ratio 13.6 Glucose 120 H POC Glucose Estimat Average Glucose 117 Hemoglobin A1c 5.7 H Calcium 8.4 L Magnesium 1.9 Total Bilirubin 0.6 AST 29 ALT 39 Alkaline Phosphatase 59 Total Protein 6.1 Albumin 3.8 Globulin 2.3 L Albumin/Globulin Ratio 1.7 Triglycerides 53 Cholesterol 182 LDL Cholesterol, Calc 114 VLDL Cholesterol, Calc 11 HDL Cholesterol 57 Cholesterol/HDL Ratio 3.2 07/27/24 11:29 WBC RBC Hgb Hct MCV MCH MCHC RDW Std Deviation RDW Coeff of Derik Plt Count MPV Immature Gran % (Auto) Neut % (Auto) Lymph % (Auto) Spink % (Auto) Eos % (Auto) Baso % (Auto) Neut # (Auto) Lymph # (Auto) Spink # (Auto) Eos # (Auto) Baso # (Auto) Immature Gran # (Auto) Heparin Anti-Xa, Unfract Sodium Potassium Chloride Carbon Dioxide Anion Gap BUN Creatinine Est Cr Clr Drug Dosing eGFR BUN/Creatinine Ratio Glucose POC Glucose 129 H Estimat Average Glucose Hemoglobin A1c Calcium Magnesium Total Bilirubin AST ALT Alkaline Phosphatase Total Protein Albumin Globulin Albumin/Globulin Ratio Triglycerides Cholesterol LDL Cholesterol, Calc VLDL Cholesterol, Calc HDL Cholesterol Cholesterol/HDL Ratio Diagnostic Findings CXR 07/26/24: Cardiac silhouette is enlarged. Pulmonary vascular congestion. Probable trace pleural effusions with interstitial coarsening. No pneumothorax. Bones appear grossly intact. IMPRESSION: -- Cardiomegaly with suggestion of mild interstitial pulmonary edema and probable trace pleural effusions. Medications Administered Medication List Heparin Sodium/Dextrose (Heparin 50195 Unit/500 Ml D5w) 25,000 units in 500 mls @ 26 mls/hr IV .[id number] [facility]; Protocol Stop: 08/25/24 13:44 Last Admin: 07/27/24 15:02 Dose: Not Given Documented By: Titration: 07/27/24 11:47 Dose: 1,300 units/hr, 26 mls/hr Documented By: CONNIE Co-signed By: JOCELIN Admin: 07/27/24 11:38 Dose: 1,200 units/hr, 24 mls/hr Documented By: CONNIE Co-signed By: RUTH Titration: 07/27/24 11:38 Dose: Infused Documented By: CONNIE Co-signed By: RUTH Titration: 07/27/24 07:14 Dose: 1,200 units/hr, 24 mls/hr Documented By: NATHALY Co-signed By: CONNIE Titration: 07/27/24 04:27 Dose: 1,200 units/hr, 24 mls/hr Documented By: NATHALY Co-signed By: ALMAZ Titration: 07/26/24 21:11 Dose: 1,100 units/hr, 22 mls/hr Documented By: NATHALY Co-signed By: ALMAZ Titration: 07/26/24 19:07 Dose: 1,000 units/hr, 20 mls/hr Documented By: NATHALY Co-signed By: ALINA Admin: 07/26/24 13:44 Dose: 1,000 units/hr, 20 mls/hr Documented By: REGINE Co-signed By: JAZIEL Amiodarone HCl/Dextrose (Nexterone / D5w) 360 mg in 200 mls @ 16.667 mls/hr IV .Q12H [facility] Stop: 08/25/24 23:29 Last Admin: 07/27/24 11:38 Dose: 0.5 mg/min, 16.7 mls/hr Documented By: CONNIE Co-signed By: RUTH Infusion: 07/27/24 11:38 Dose: Infused Documented By: CONNIE Co-signed By: RUTH Admin: 07/27/24 00:02 Dose: 0.5 mg/min, 16.7 mls/hr Documented By: NATHALY Co-signed By: ALMAZ Lisinopril (Lisinopril 20 Mg Tab) 20 mg PO DAILY [facility] Stop: 08/26/24 08:59 Last Admin: 07/27/24 10:09 Dose: 20 mg Documented By: CONNIE Miscellaneous (Remove Nicoderm Patch) 1 each N/A DAILY@0859 [facility] Stop: 08/26/24 08:58 Last Admin: 07/27/24 09:43 Dose: 1 each Documented By: CONNIE Nicotine (Nicotine 21 Mg/24 Hr Tdsy) 1 patch TD QAM [facility] Stop: 08/25/24 14:29 Last Admin: 07/27/24 10:09 Dose: 1 patch Documented By: Admin: 07/26/24 17:47 Dose: 1 patch Documented By: JOCELIN Discontinued Medications Amiodarone HCl (Amiodarone Iv Bolus & Drip) 1 each IV NOW STA; Protocol Stop: 07/26/24 17:25 Last Admin: 07/26/24 17:47 Dose: 1 each Documented By: JOCELIN Diltiazem HCl (Diltiazem Hcl 5 Mg/Ml 5 Ml Vial) 10 mg IV NOW STA Stop: 07/26/24 12:39 Last Admin: 07/26/24 12:49 Dose: 10 mg Documented By: REGINE Co-signed By: JAMMIE Furosemide (Furosemide Inj 20 Mg/2 Ml Vial) 20 mg IV ONE ONE Stop: 07/27/24 09:22 Last Admin: 07/27/24 10:12 Dose: 20 mg Documented By: CONNIE Heparin Sodium (Porcine) (Heparin Sod (Porcine) 1000 Unit/Ml) 4,000 units IV NOW ONE Stop: 07/26/24 13:40 Last Admin: 07/26/24 13:43 Dose: 4,000 units Documented By: REGINE Co-signed By: JAZIEL Heparin Sodium/Dextrose (Heparin Iv Adult Wt-Based Low-Dose W/ Initial Bolus Protocol) 1 each IV NOW STA; Protocol Stop: 07/26/24 13:25 Last Admin: 07/26/24 13:24 Dose: 1 each Documented By: JOCELIN Hydroxyzine HCl (Hydroxyzine Hcl 25 Mg Tab) 25 mg PO NOW STA Stop: 07/26/24 19:27 Last Admin: 07/26/24 19:37 Dose: 25 mg Documented By: NATHALY Diltiazem HCl 125 mg/ Dextrose 125 mls @ 5 mls/hr IV .Q24H [facility]; Protocol Stop: 08/25/24 12:44 Last Titration: 07/26/24 17:59 Dose: Infused Documented By: JOCELIN Co-signed By: TLM Titration: 07/26/24 14:22 Dose: 15 mg/hr, 15 mls/hr Documented By: REGINE Co-signed By: MMG Titration: 07/26/24 13:24 Dose: 10 mg/hr, 10 mls/hr Documented By: REGINE Co-signed By: DAVID Admin: 07/26/24 12:57 Dose: 5 mg/hr, 5 mls/hr Documented By: REGINE Co-signed By: JAZIEL Thiamine HCl 500 mg/ Sodium (Chloride) 55 mls @ 210 mls/hr IV NOW STA Stop: 07/26/24 12:54 Last Admin: 07/26/24 13:44 Dose: Not Given Documented By: REGINE Magnesium Sulfate/Dextrose (Magnesium Sulfate / D5w) 1 gm in 100 mls @ 100 mls/hr IV Q1H [facility] Stop: 07/26/24 14:38 Last Infusion: 07/26/24 15:00 Dose: Infused Documented By: Admin: 07/26/24 13:52 Dose: 100 mls/hr Documented By: Infusion: 07/26/24 13:48 Dose: Infused Documented By: Admin: 07/26/24 12:48 Dose: 100 mls/hr Documented By: REGINE Amiodarone HCl/Dextrose (Nexterone / D5w) 150 mg in 100 mls @ 600 mls/hr IV NOW STA Stop: 07/26/24 17:33 Last Infusion: 07/26/24 17:55 Dose: Infused Documented By: JOCELNI Co-signed By: ALINA Admin: 07/26/24 17:41 Dose: 600 mls/hr Documented By: JOCELIN Co-signed By: ALINA Amiodarone HCl/Dextrose (Nexterone / D5w) 360 mg in 200 mls @ 33.333 mls/hr IV ONE ONE Stop: 07/26/24 23:33 Last Infusion: 07/27/24 00:02 Dose: Infused Documented By: NATHALY Co-signed By: ALMAZ Admin: 07/26/24 17:55 Dose: 1 mg/min, 33.3 mls/hr Documented By: JOCELIN Co-signed By: ALINA Magnesium Sulfate/Dextrose (Magnesium Sulfate / D5w) 1 gm in 100 mls @ 50 mls/hr IV ONE ONE Stop: 07/26/24 23:21 Last Infusion: 07/26/24 23:40 Dose: Infused Documented By: [facility] Admin: 07/26/24 21:35 Dose: 50 mls/hr Documented By: NATHALY Amiodarone HCl/Dextrose (Nexterone / D5w) 150 mg in 100 mls @ 600 mls/hr IV NOW STA Stop: 07/26/24 22:51 Last Infusion: 07/26/24 23:08 Dose: Infused Documented By: NATHALY Co-signed By: ALMAZ Admin: 07/26/24 22:57 Dose: 600 mls/hr Documented By: NATHALY Co-signed By: MICHELLE Magnesium Sulfate/Dextrose (Magnesium Sulfate / D5w) 1 gm in 100 mls @ 50 mls/hr IV ONE ONE Stop: 07/27/24 09:56 Last Infusion: 07/27/24 11:49 Dose: Infused Documented By: Admin: 07/27/24 09:43 Dose: 50 mls/hr Documented By: CONNIE Amiodarone HCl/Dextrose (Nexterone / D5w) 150 mg in 100 mls @ 600 mls/hr IV NOW STA Stop: 07/27/24 09:49 Last Infusion: 07/27/24 10:19 Dose: Infused Documented By: CONNIE Co-signed By: FRANCES Admin: 07/27/24 09:43 Dose: 600 mls/hr Documented By: CONNIE Co-signed By: FRANCES Lorazepam (Lorazepam 2 Mg/1 Ml Vial) 1 mg IV NOW STA Stop: 07/26/24 13:12 Last Admin: 07/26/24 13:20 Dose: 1 mg Documented By: REGINE Metoprolol Tartrate (Metoprolol Tartrate 1 Mg/Ml Vial) 5 mg IV NOW STA Stop: 07/26/24 11:40 Last Admin: 07/26/24 11:42 Dose: 5 mg Documented By: REGINE Metoprolol Tartrate (Metoprolol Tartrate 1 Mg/Ml Vial) 5 mg IV NOW STA Stop: 07/26/24 12:05 Last Admin: 07/26/24 12:08 Dose: 5 mg Documented By: REGINE Metoprolol Tartrate (Metoprolol Tartrate 1 Mg/Ml Vial) 5 mg IV NOW STA Stop: 07/26/24 12:15 Last Admin: 07/26/24 12:24 Dose: 5 mg Documented By: REGINE Miscellaneous (Stat Iv Infusion Titration Per Protocol) 1 each N/A NOW STA Stop: 07/26/24 17:25 Last Admin: 07/26/24 18:00 Dose: 1 each Documented By: JOCELIN PG Care Time/CCT Total # of Minutes Spent Total Time Spent with Patient: Total time spent is greater than 50% in coordination of care (as documented) at patient's floor/unit and/or counseling patient:48 [place] [address] IN/OBS CONSULT LVL 5,80M Patient Type New History Comprehensive Exam Comprehensive Medical Decision Making High Complexity Diagnoses Atrial flutter with rapid ventricular response I48.92 Typical atrial flutter I48.3 Atrial flutter type: typical Acute congestive heart failure, unspecified heart failure type I50.9 Heart failure chronicity: acute Heart failure type: unspecified Hypertension I10 Hypertension type: unspecified Time Spent (min) 85 (2) Atrial flutter Atrial flutter type: typical Qualified Code(s): I48.3 - Typical atrial flutter (3) CHF (congestive heart failure) Heart failure chronicity: acute Heart failure type: unspecified Qualified Code(s): I50.9 - Heart failure, unspecified (4) Hypertension Hypertension type: unspecified Qualified Code(s): I10 - Essential (primary) hypertension
[2024-07-27] MEDS: DIGOXIN 500 MCG in SYRINGE 8 ML IV STA (15:21)
--- NOTE | 2024-07-27 16:23 | XCELERA ---
[id number] [id number]
[2024-07-27 19:26] LABS: ANTI-Xa, UFH(UnfractionatedHep 0.23 IU/ml (0.3-0.7)
[2024-07-27] MEDS: MELATONIN 3 MG TAB PO PRN (20:28)
[2024-07-28 03:07] LABS: Basophils # (auto) 0.04 K/uL (0.00-0.20); Basophils % (auto) 0.6 %; Eosinophils # (auto) 0.24 K/uL (0.00-0.50); Eosinophils % (auto) 3.5 %; Hematocrit (blood only) 39.8 % (42.0-52.0); Hemoglobin 13.3 g/dl (14.0-18.0); Immature Granulocytes # (auto) 0.03 K/uL (0.01-0.20); Immature Granulocytes % (auto) 0.4 %; Lymphocytes # (auto) 1.57 K/uL (1.20-3.40); Lymphocytes % (auto) 22.8 %; Mean Corpuscular Hemoglobin 31.7 pg (25.0-34.0); Mean Corpuscular Hgb Conc 33.4 g/dL (32.0-36.0); Monocytes # (auto) 0.62 K/uL (0.11-0.59); Neutrophils % (auto) 63.7 %; Platelet Count 137 K/uL (130-400); RDW Coefficient of Variation 13.9 % (11.5-14.5); RDW Standard Deviation 48.1 fL (36.4-46.3); Red Blood Count 4.19 M/uL (4.70-6.10)
[2024-07-28 03:08] LABS: ANTI-Xa, UFH(UnfractionatedHep 0.29 IU/ml (0.3-0.7)
[2024-07-28 08:48] LABS: Calcium 8.2 mg/dl (8.6-10.3); Creatinine Clr Calc Pharmacy 109.4 ml/min
[2024-07-28 10:24] LABS: ANTI-Xa, UFH(UnfractionatedHep 0.36 IU/ml (0.3-0.7)
--- NOTE | 2024-07-28 13:55 | Hospitalist Progress Note ---
Date of Service July 28, 2024 Assessment & Plan (1) Atrial flutter: (2) Hypertension: (3) Atrial flutter with rapid ventricular response: (4) CHF (congestive heart failure): (5) Cardiomyopathy: (6) Bilateral lower extremity edema: (7) Acute on chronic heart failure with reduced ejection fraction (HFrEF, <= 40% ): Plan 48 yr M with PMHx of HTN presenting to the ED with incidental finding of tachycardia during PCP visit, ECG revealing atrial flutter. Currently asymptomat ic. BNP 108. Negative troponin. Normal TSH. CXR with cardiomegaly, pulmonary edema. 80 pack yr smoking hx. 2 energy drinks per day. Unclear alcohol drinking history, at least 1 beer per day. #Atrial Flutter - ECG: atrial flutter 2:1 AV conduction - CXR: cardiomegaly, mild pulmonary edema, possible trace pleural effusions - BNP 108, negative troponin, lipid and cholesterol profile WNL - anticoagulation with IV heparin drip - inadequate rate control with IV metoprolol in ED, and Cardizem drip on 07/26 - patient received 2 additional infusions of IV amiodarone 360 mg over last 24 hrs - TTE revealing LVH, EF: 20-25%, consider repeat echo once out of aflutter #Nicotine Withdrawal - 2 packs/day for 40 yrs - administered nicotine patch for withdrawal symptoms #Alcohol Withdrawal - unclear drinking history - monitoring with AWSS - IV lorazepam PRN for withdrawal symptoms per protocol #HTN - BP elevated - continue lisinopril 20 mg Admission and Anticipated Discharge Date Admission Date: July 26, 2024 Supervising Physician Co-Signing Physician Notes ATTESTATION I also saw the patient with the resident and medical student and confirmed huntley portions of the history and exam. I agree with the impression and plan in the resident documentation, and as summarized below. I also personally discussed the plan of care with cardiology. Patient remains in a-flutter with rates around 140s. Asymptomatic. I reviewed the results of the echocardiogram with him today. EXAM Rates mid 140s BP 140/97 A/O, NAD. CV rate c/w that on monitor, regular Respirations non labored, Lungs CTA B/L LE edema at ankles, less than previous DATA Labs Hgb 13.3 Imaging Echo with decreased EF (25-30%) IMPRESSION & PLAN A-flutter Acute on chronic heart failure with reduced ejection fraction Cardiomyopathy Tobacco Abuse HTN ETOH use Continue heparin GTT Anticipate CHARIS/Cardioversion in AM Additional per resident documentation Subjective Patient is feeling well this morning and has no complaints. He mentions he is still feeling fine and denies chest pain, palpitations, and lightheadedness. Review of Systems Review of Systems: All systems reviewed & are unremarkable except as noted in HPI & below Physical Exam Constitutional: WD/WN, vitals as above Respiratory: bibasilar crackles, normal respiratory effort Cardiovascular: Rate/Rhythm: regular rhythm and + tachycardic no M/R/G, 2+ pitting edema b/l Gastrointestinal (Abdomen): normal bowel sounds, soft, nontender, no hepatosplenomegaly Results & Data Results & Data Vital Signs (Past 12 Hours) Vital Signs Temp Pulse Resp BP Pulse Ox O2 Del Method 07/28/24 12:48 37.0 C 145 H 18 129/87 145 H Room Air 07/28/24 10:00 98 H 07/28/24 08:10 36.9 C 147 H 18 132/84 94 Room Air 07/28/24 03:05 36.7 C 144 H 18 130/97 94 Room Air (1) Atrial flutter Atrial flutter type: typical Qualified Code(s): I48.3 - Typical atrial flutter (2) Hypertension Hypertension type: unspecified Qualified Code(s): I10 - Essential (primary) hypertension (4) CHF (congestive heart failure) Heart failure type: unspecified Heart failure chronicity: acute Qualified Code(s): I50.9 - Heart failure, unspecified
[2024-07-29 05:53] LABS: BUN Creatinine Ratio 8.8 (10-20); Calcium 8.5 mg/dl (8.6-10.3); Creatinine Clr Calc Pharmacy 107.2 ml/min; Potassium 3.9 mmol/L (3.5-5.1)
[2024-07-29 05:58] LABS: ANTI-Xa, UFH(UnfractionatedHep 0.41 IU/ml (0.3-0.7)
--- NOTE | 2024-07-29 07:48 | Anesthesiology Consultation ---
Date of Service July 29, 2024 Assessment & Plan ASA ASA2 Proposed Anesthesia Anesthesia Type: MAC Risk / Benefits Reviewed With: PT / POA / Parent / Guardian, Accepts Plan and Informed Consent Obtained History Surgery Operation Date: 07/29/24 07:30 Proposed Procedures p Cardioversion Carpenter Maintenance w/Anesthesia - Bello Garcia MD s Trans-Esophageal Echo - Bello Garcia MD Height/Weight Height: 5 ft 9 in Weight: 110.2 kg Allergies Allergy/AdvReac Type Severity Reaction Status Date / Time No Known Allergies Allergy Mild Unverified 10/05/06 15:44 Medications Home Medications Medication Instructions Recorded Confirmed Last Taken lisinopril 20 mg tablet 20 mg PO DAILY 07/26/24 07/26/24 Unknown Active Medications Generic Name Dose Route Start Last Admin Trade Name Freq PRN Reason Stop Dose Admin Heparin Sodium/Dextrose 25,000 units in 500 mls @ 30 mls/hr 07/26/24 13:45 07/29/24 07:13 Heparin 49937 Unit/500 Ml D5w IV 08/25/24 13:44 1,500 units/hr .[id number] LIVE 30 mls/hr Titration Protocol 1,500 UNITS/HR Amiodarone HCl/Dextrose 360 mg in 200 mls @ 16.667 mls/hr 07/26/24 23:30 07/29/24 07:14 Nexterone / D5w IV 08/25/24 23:29 0.5 mg/min .Q12H LIVE 16.7 mls/hr Infusion 0.5 MG/MIN Lisinopril 20 mg 07/27/24 09:00 07/28/24 13:04 Lisinopril 20 Mg Tab PO 08/26/24 08:59 20 mg DAILY LIVE Administration Melatonin 6 mg 07/26/24 16:12 07/27/24 20:28 Melatonin 3 Mg Tab PO 08/25/24 16:11 6 mg HS PRN Administration Sleep Miscellaneous 1 each 07/27/24 08:59 07/28/24 09:30 Remove Nicoderm Patch N/A 08/26/24 08:58 1 each [id number] LIVE Administration Nicotine 1 patch 07/26/24 14:30 07/28/24 09:30 Nicotine 21 Mg/24 Hr Tdsy TD 08/25/24 14:29 1 patch QAM LIVE Administration Exercise / Class Metabolic Activity II 4-5 Yardwork/Stairs/Walk up hill Past Anesthesia History No Hx of Anesthesia Complications and No Family Hx of Anesthesia Complications History of PONV No Hx of PONV and No Hx of Motion Sickness Social History Smoking Status: Current every day smoker Smoking cigarettes per day: 40 Hx Alcohol Use: Yes Alcohol type: beer alcohol intake frequency: 3 or more drinks per day Hx Substance Use: No substance use type: does not use Review of Systems denies fever/cough/ colds/ chest pain/ SOB/ VICKIE denies VICKIE Physical Exam Vital Signs Last Vital Signs Temp 36.5 C 07/29/24 02:37 Pulse 145 H 07/29/24 02:37 Resp 18 07/29/24 02:37 BP 120/84 07/29/24 02:37 Pulse Ox 96 07/29/24 02:37 O2 Del Method Room Air 07/29/24 02:37 ENMT Mouth: no TMJ abnormality and no dentition abnormality Thyromental Distance: > or= 3.5 Finger Breadths Mallampati Class: II Neck neck extension not limited Respiratory normal respiratory effort; no respiratory distress Auscultation: lungs clear to auscultation bilaterally Cardiovascular Rate/Rhythm: regular rate and regular rhythm Neurologic moves all extremities Psychiatric Orientation: alert and oriented x 3 Testing Laboratory Results 07/28/24 02:15 07/29/24 05:06 PT 11.1 Seconds (9.0-12.0) 07/26/24 11:28 INR 1.0 (0.9-1.1) 07/26/24 11:28 APTT 25 Seconds (21-31) 07/26/24 11:28 Hemoglobin A1c 5.7 % (4.5-5.6) H 07/27/24 03:20
[2024-07-29] MEDS ORDERED: PROPOFOL IV EMULSION 10 MG/ML 20 ML VIAL IV ONE ×2 (08:39)
--- NOTE | 2024-07-29 09:00 | Electrocardiogram Report ---
Test Reason : Blood Pressure : */* mmHG Vent. Rate : 164 BPM Atrial Rate : 328 BPM P-R Int : * ms QRS Dur : 124 ms QT Int : 244 ms P-R-T Axes : 262 12 97 degrees QTcB Int : 403 ms Atrial flutter with 2:1 A-V conduction Non-specific intra-ventricular conduction delay Nonspecific T wave abnormality Abnormal ECG No previous ECGs available Confirmed by Gregorio Mohan ([id number]) on 07/29/2024 9:00:00 AM Referred By: Confirmed By: Gregorio Mohan
--- NOTE | 2024-07-29 09:01 | Anesthesiology Progress Note ---
Date of Service July 29, 2024 Anesthesia Post Procedure Vital Signs Vital Signs: Temp Pulse Pulse Resp BP Pulse Ox O2 Del Method 07/29/24 08:50 37.1 C 96 H 17 132/88 95 Room Air 07/29/24 08:30 106 H 18 119/88 95 Room Air 07/29/24 07:00 150 H 07/29/24 02:37 36.5 C 145 H 18 120/84 96 Room Air 07/28/24 22:48 36.5 C 149 H 18 117/78 94 Room Air 07/28/24 22:00 147 H 07/28/24 20:00 Room Air 07/28/24 19:27 37.1 C 148 H 18 133/98 96 Room Air 07/28/24 16:38 37.1 C 151 H 18 140/97 96 Room Air 07/28/24 12:48 37.0 C 145 H 18 129/87 145 H Room Air 07/28/24 10:00 98 H Transfer of Care Handoff Completed per policy Notes Mental Status: alert / awake / arousable and participated in evaluation Patient Amnestic to Procedure: Yes Nausea / Vomiting: adequately controlled Pain: adequately controlled Airway Patency, RR, SpO2: stable & adequate BP & HR: stable & adequate Hydration State: stable & adequate Anesthetic Complications: no major complications apparent and Pt Satisfied with anesthetic care
--- NOTE | 2024-07-29 09:22 | Electrocardiogram Report ---
Test Reason : Blood Pressure : */* mmHG Vent. Rate : 145 BPM Atrial Rate : 290 BPM P-R Int : * ms QRS Dur : 132 ms QT Int : 276 ms P-R-T Axes : 261 17 72 degrees QTcB Int : 428 ms Atrial flutter with 2:1 A-V conduction Non-specific intra-ventricular conduction block Abnormal ECG When compared with ECG of 26-Jul-2024 11:25, (unconfirmed) ST now depressed in Inferior leads Confirmed by Gregorio Mohan ([id number]) on 07/29/2024 9:22:19 AM Referred By: REFERRED SELF Confirmed By: Gregorio Mohan
--- NOTE | 2024-07-29 09:44 | Electrocardiogram Report ---
Test Reason : Blood Pressure : */* mmHG Vent. Rate : 146 BPM Atrial Rate : 292 BPM P-R Int : * ms QRS Dur : 98 ms QT Int : 266 ms P-R-T Axes : -83 -5 104 degrees QTcB Int : 414 ms Atrial flutter with 2:1 A-V conduction Nonspecific ST and T wave abnormality Abnormal ECG When compared with ECG of 27-Jul-2024 06:01, (unconfirmed) No significant change was found Confirmed by Gregorio Mohna ([id number]) on 07/29/2024 9:44:14 AM Referred By: REFERRED SELF Confirmed By: Gregorio Mohan
[2024-07-29] MEDS: BENZOCAINE/TETRACAIN/BUTAM 50 APPLN/5 GM CAN EXT ONE (10:29)
--- NOTE | 2024-07-29 11:18 | Cardioversion ---
Date of Service July 29, 2024 PG Electrical Cardioversion Rp Electrical Cardioversion Report Procedure performed: Cardioversion Indication: Patient is a 48-year-old gentleman with a history of persistent atrial flutter Staff benefits specialist: Bello Garcia MD Procedure in detail: The patient was informed of the risks benefits and alternatives to the intended procedure. He understood such which proceed. He was taken to the cardiac catheterization suite holding area. A general anesthetic was administered by the Anesthesiology Service. Once appropriately anesthetized, the patient was cardioverted using 30 joules delivered in a biphasic fashion. This returned the patient to sinus rhythm. The patient tolerated procedure well, there were no immediate complications. Patient was neurologically intact subsequent to the procedure. Impression: Successful cardioversion from atrial flutter to normal sinus rhythm Coding Level of Care Code 30875 CARDIOVERSION, ELECTIVE Additional Codes Electrical Cardioversion Report ([id number])
--- NOTE | 2024-07-29 16:00 | Hospitalist Progress Note ---
Date of Service July 29, 2024 Assessment & Plan (1) Atrial flutter: (2) Hypertension: Plan 48 yr M with PMHx of HTN presenting to the ED with incidental finding of tachycardia during PCP visit, ECG revealing atrial flutter. Currently asymptomatic. BNP 108. Negative troponin. Normal TSH. CXR with cardiomegaly, pulmonary edema. 80 pack yr smoking hx. 2 energy drinks per day. Unclear alcohol drinking history, at least 1 beer per day. #Atrial Flutter - ECG: atrial flutter 2:1 AV conduction - CXR: cardiomegaly, mild pulmonary edema, possible trace pleural effusions - BNP 108, negative troponin, lipid and cholesterol profile WNL - anticoagulation with IV heparin drip - TTE revealing LVH, EF: 20-25%, consider repeat echo once out of aflutter - cardioverted in the AM on 07/29, HR currently between 89-97 - will continue to monitor overnight for maintenance of RRR - ensure cardiology follow up outpatient for management of HF #Nicotine Withdrawal - 2 packs/day for 40 yrs - administered nicotine patch for withdrawal symptoms #Alcohol Withdrawal - unclear drinking history - monitoring with AWSS - IV lorazepam PRN for withdrawal symptoms per protocol #HTN - BP elevated - continue lisinopril 20 mg Admission and Anticipated Discharge Date Admission Date: July 26, 2024 Supervising Physician Co-Signing Physician Notes ATTESTATION I also saw the patient with the resident and medical student and confirmed huntley portions of the history and exam. I agree with the impression and plan in the resident documentation, and as summarized below. I also personally discussed the plan of care with cardiology. Now in sinus post cardioversion. EXAM Rate around mid 90s, regular A/O, NAD. CV regular rhythm, tachycardic Respirations non labored, Lungs CTA B/L LE edema at ankles, less than previous DATA Labs Hgb 13.3 Imaging Echo with decreased EF (25-30%) IMPRESSION & PLAN A-flutter S/P cardioversion Acute on chronic heart failure with reduced ejection fraction Cardiomyopathy Tobacco Abuse HTN ETOH use Discussed lifestyle modifications to decrease overall cardiovalvular risk Discontinue heparin gtt and start Eliquis Add Toprol 25 mg XL tonight Will need outpatient cardiology follow up and repeat echocardiogram Additional per resident documentation Subjective Patient is feeling well. He had cardioversion in the AM, and is tolerating that well. He does not notice a difference in his HR, but mentions his face looks less pale. Review of Systems Review of Systems: All systems reviewed & are unremarkable except as noted in HPI & below Physical Exam Constitutional: WD/WN, vitals as above Respiratory: normal respiratory effort, lungs clear to auscultation Cardiovascular: Rate/Rhythm: regular rate and regular rhythm no M/R/G, mild pitting edema b/l Gastrointestinal (Abdomen): normal bowel sounds, soft, nontender, no hepatosplenomegaly Results & Data Results & Data Vital Signs (Past 12 Hours) Vital Signs Temp Pulse Pulse Resp BP BP Pulse Ox 07/29/24 14:10 89 07/29/24 11:42 37.2 C 97 H 17 139/98 100 07/29/24 10:17 93 H 145/105 H 149/108 H 07/29/24 09:44 92 H 18 139/98 95 07/29/24 09:08 96 H 18 126/90 94 07/29/24 09:00 96 H 07/29/24 08:50 37.1 C 96 H 17 132/88 95 07/29/24 08:30 106 H 18 119/88 95 07/29/24 07:00 150 H O2 Del Method 07/29/24 14:10 07/29/24 11:42 Room Air 07/29/24 10:17 07/29/24 09:44 Room Air 07/29/24 09:08 Room Air 07/29/24 09:00 07/29/24 08:50 Room Air 07/29/24 08:30 Room Air 07/29/24 07:00 (1) Atrial flutter Atrial flutter type: typical Qualified Code(s): I48.3 - Typical atrial flutter (2) Hypertension Hypertension type: unspecified Qualified Code(s): I10 - Essential (primary) hypertension
--- NOTE | 2024-07-29 17:45 | Cardiology Progress Note ---
Date of Service July 29, 2024 Assessment & Plan (1) Atrial flutter with rapid ventricular response: (2) Atrial flutter: (3) CHF (congestive heart failure): (4) Hypertension: Plan Patient underwent successful cardioversion today. No evidence of left atrial appendage thrombus on transesophageal echocardiogram. He has a high risk of recurrence and we discussed catheter-based therapy today for potential cure. He seems interested in this can be arranged on an outpa tient basis. Provided he is otherwise feeling well I think it would be safe for him to be discharged. I do not think he requires continued antiarrhythmic medication as an ablation will be much more effective. I think this can be arranged in the short-term. Because of his cardiomyopathy he should be on metoprolol succinate 25 mg daily. He can continue his current dose of lisinopril. The likely etiology of his reduced LV function is simply his persistent tachycardia. Hopefully this will improve now that he is return to sinus rhythm. He will need to be maintained on systemic anticoagulation for several weeks. This could be in the form of Eliquis 5 mg twice daily or Xarelto 20 mg daily. Admission and Anticipated Discharge Date Admission Date: July 26, 2024 Subjective 70 patient clinically feeling well. Did not describe any breathing difficulty. No orthopnea. No sense of palpitation. No chest pain. Has been ambulatory without significant dizziness. Review of Systems Review of Systems: Per HPI Physical Exam Physical Exam: The patient is alert and oriented. Mood and affect appeared normal. He answered all questions appropriately. HEENT: Pupils are equal and reactive to light and accommodation. Extraocular movements are intact. The sclerae are anicteric. Neuro: Cranial nerves intact Lungs: Normal respiratory effort Cardiac: Regular rhythm Pulses: The patient has palpable radial pulses bilaterally that are equal in intensity Extremities: There was no evidence of hypoperfusion. There is no cyanosis or clubbing. There is no edema. Skin: I did not appreciate any rashes on examination today. Results & Data Vital Signs (Past 12 Hours) Vital Signs Temp Pulse Pulse Resp BP BP Pulse Ox 07/29/24 16:00 37 C 100 H 17 147/92 H 98 07/29/24 14:10 89 07/29/24 11:42 37.2 C 97 H 17 139/98 100 07/29/24 10:17 93 H 145/105 H 149/108 H 07/29/24 09:44 92 H 18 139/98 95 07/29/24 09:08 96 H 18 126/90 94 07/29/24 09:00 96 H 07/29/24 08:50 37.1 C 96 H 17 132/88 95 07/29/24 08:30 106 H 18 119/88 95 07/29/24 07:00 150 H O2 Del Method 07/29/24 16:00 Room Air 07/29/24 14:10 07/29/24 11:42 Room Air 07/29/24 10:17 07/29/24 09:44 Room Air 07/29/24 09:08 Room Air 07/29/24 09:00 07/29/24 08:50 Room Air 07/29/24 08:30 Room Air 07/29/24 07:00 Laboratory Results Abnormal Lab Results 07/29/24 05:06 Heparin Anti-Xa, Unfract 0.41 Sodium 141 Potassium 3.9 Chloride 107 Carbon Dioxide 28 Anion Gap 6 BUN 9 Creatinine 1.02 Est Cr Clr Drug Dosing 107.2 eGFR 90.10 BUN/Creatinine Ratio 8.8 L Glucose 111 H Calcium 8.5 L PG Care Time/CCT Total # of Minutes Spent Total Time Spent with Patient: Total time spent is greater than 50% in coordination of care (as documented) at patient's floor/unit and/or counseling patient: Coding Level of Care Code 13616 SUB INP/OBS CARE 2/35MIN Diagnoses Atrial flutter with rapid ventricular response I48.92 Typical atrial flutter I48.3 Atrial flutter type: typical Acute congestive heart failure, unspecified heart failure type I50.9 Heart failure type: unspecified Heart failure chronicity: acute Hypertension I10 Hypertension type: unspecified (2) Atrial flutter Atrial flutter type: typical Qualified Code(s): I48.3 - Typical atrial flutter (3) CHF (congestive heart failure) Heart failure type: unspecified Heart failure chronicity: acute Qualified Code(s): I50.9 - Heart failure, unspecified (4) Hypertension Hypertension type: unspecified Qualified Code(s): I10 - Essential (primary) hypertension
[2024-07-29] MEDS: METOPROLOL SUCC 25MG EXT REL TAB PO SCH (20:20)
[2024-07-29] MEDS: APIXABAN 5 MG TABLET PO SCH (20:21)
[2024-07-30 06:10] LABS: Basophils # (auto) 0.02 K/uL (0.00-0.20); Basophils % (auto) 0.4 %; Eosinophils # (auto) 0.17 K/uL (0.00-0.50); Eosinophils % (auto) 3.2 %; Hematocrit (blood only) 37.6 % (42.0-52.0); Hemoglobin 12.8 g/dl (14.0-18.0); Immature Granulocytes # (auto) 0.02 K/uL (0.01-0.20); Immature Granulocytes % (auto) 0.4 %; Lymphocytes # (auto) 1.12 K/uL (1.20-3.40); Lymphocytes % (auto) 20.8 %; Mean Corpuscular Hemoglobin 32.5 pg (25.0-34.0); Mean Corpuscular Volume 95.4 fL (80.0-100.0); Mean Platelet Volume 11.9 fL (9.4-12.4); Monocytes # (auto) 0.59 K/uL (0.11-0.59); Neutrophils # (auto) 3.46 K/uL (1.40-6.50); Neutrophils % (auto) 64.2 %; Platelet Count 122 K/uL (130-400); RDW Coefficient of Variation 13.8 % (11.5-14.5); RDW Standard Deviation 48.9 fL (36.4-46.3); Red Blood Count 3.94 M/uL (4.70-6.10); White Blood Count 5.38 K/ul (4.8-10.8)
[2024-07-30 06:29] LABS: BUN Creatinine Ratio 14.1 (10-20); Calcium 8.1 mg/dl (8.6-10.3); Creatinine Clr Calc Pharmacy 110.4 ml/min; Potassium 3.9 mmol/L (3.5-5.1)
[2024-07-30 06:42] LABS: ANTI-Xa, UFH(UnfractionatedHep 0.34 IU/ml (0.3-0.7)
--- NOTE | 2024-07-30 07:52 | Discharge Summary ---
Date of Service July 30, 2024 Admission HPI Per Admitting Provider 48 yr M with PMHx of HTN presenting to the ED with incidental finding of HR in the 160s during PCP visit, with ECG showing atrial flutter. Patient is currently asymptomatic and denies chest pain, lightheadedness, and palpitations. Over the last 3 days, he mentions feeling more fatigued, and having to take more naps throughout the day. He mentions shortness of breath when lying down flat that improves when sitting up, and a 2 week hx of bilateral ankle swelling. His mentions he has not been feeling like himself since the beginning of May. He denies hx of cardiac issues outside of HTN, but notes his father had HTN and atrial flutter. 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 He drinks 2 energy drinks per day. Has been smoking 2 packs per day for the last 40 years. He mentions he drinks "1 beer on most days, many more on others, and none at all on some days." Patient was treated in the ED with three doses of IV metoprolol 5 mg each for rate control, but remained in atrial flutter with HR in the high 150s Principal Diagnosis Atrial flutter Discharge Exam Constitutional WD/WN, vitals as above Respiratory normal respiratory effort, lungs clear to auscultation Cardiovascular Rate/Rhythm: regular rate and regular rhythm no M/R/G, slight edema Gastrointestinal (Abdomen) normal bowel sounds, soft, nontender, no hepatosplenomegaly Psychiatric A+Ox3, euthymic affect Discharge Data Allergies Allergy/AdvReac Type Severity Reaction Status Date / Time No Known Allergies Allergy Mild Unverified 10/05/06 15:44 Consultations 07/26/24 13:21 ED Decision to Admit Stat 07/26/24 14:57 Consult Cardiology Routine 07/26/24 16:12 Consult Cardiology Routine 07/29/24 08:00 Consult Anesthesiology Routine Procedures Performed Operation Date: 07/29/24 07:30 Actual Procedures p Echo Transesophageal - Bello Garcia MD s Echo Color Flow - Bello Garcia MD s Echo Doppler Complete - Bello Garcia MD s Cardioversion - Bello Garcia MD Hospital Course (1) Atrial flutter: (2) Hypertension: Haroon Lin is a 48 yr M with PMHx of HTN and 80-pack years presenting to the ED with incidental finding of tachycardia during PCP visit, with an ECG revealing atrial flutter with rapid ventricular response. On admission, patient was asymptomatic. Cardiac workup showed a BNP of 108, negative troponin, CXR with cardiomegaly and pulmonary edema, and TTE revealing LVH w/ and EF of 20- 25%. Patient was unable to obtain adequate rate control with IV metoprolol, Cardizem drip, and multiple IV amiodarone boluses and infusions. On 07/29, patient was cardioverted and maintained NSR with rates ranging from 85-97. Following discharge, patient will begin taking Eliquis 5 mg PO Q12H, metoprolol succinate 25 mg PO daily, and furosemide 20 mg PO daily, in addition to his home medications of lisinopril 20 mg PO daily. He will continue to follow up with [facility] cardiology to manage his heart failure and atrial flutter. He will need an echo within the next 3 months to continue monitoring cardiac function and ejection fraction. #Atrial Flutter - ECG: atrial flutter 2:1 AV conduction - CXR: cardiomegaly, mild pulmonary edema, possible trace pleural effusions - BNP 108, negative troponin, lipid and cholesterol profile WNL - anticoagulation with IV heparin drip - TTE revealing LVH, EF: 20-25%, consider repeat echo once out of aflutter - cardioverted in the AM on 07/29, HR currently between 85-97 - will continue to monitor overnight for maintenance of RRR - ensure cardiology follow up outpatient for management of HF #Nicotine Withdrawal - 2 packs/day for 40 yrs - administered nicotine patch for withdrawal symptoms #Alcohol Withdrawal - unclear drinking history - monitoring with [facility] - IV lorazepam PRN for withdrawal symptoms per protocol #HTN - BP elevated - continue lisinopril 20 mg Total Time Total Time Spent Total Time Spent (In Minutes): Nikolas Allison DO, attending physician, spent 22 minutes myself seeing the patient, reviewing the chart, and documenting today. Discharge Plan Discharge Items Patient Disposition: Home - Self-Care Reason For Visit: ATRIAL FLUTTER Discharge Diagnosis: Atrial Flutter s/p Cardioversion Activity: Resume your previous activity Activity Comment: as tolerated Non-emergency contact: Primary Care Provider and Dado Operator Call non-emergency contact if: you have any medication questions Follow-up/Referrals: Nick Rebolledo PA-C [Physician Plasterer Tender] - Jay Vega PA-C [Primary Care Provider] - Diet: Heart Healthy Addtl Attending Provider Instructions: You were admitted to the hospital for tachycardia (fast heart rate). You were found to have an abnormal heart rhythm call atrial flutter. We attempted to slow your heart rate and correct the rhythm with multiple medications, which was unsuccessful. Ultimately you underwent electrical cardioversion with good success and your heart rhythm normalized. When you are discharged you will start taking new medications. These are outlined below. You discussed with the electrophysiology well surveying engineer that you may be a good candidate for an ablation to prevent your abnormal heart rhythm from returning. Be sure to follow up with your primary care physician and cardiology in the near future. A discharge summary will be sent to your primary care physician to ensure ivonne nuity of care. Please bring this discharge summary with you to your next office appointment so that your provider can review it at that time. Follow-up appointments: Make a follow-up appointment with your PCP within the next week. It is very important that you follow up with them shortly after discharge from the hospital. Be sure to follow up with cardiology. We should be able to make this a ppointment for you. If we cannot do this or you have any questions the cardiology office number is: Keep all your follow-up appointments as already scheduled. If you cannot make an appointment, notify your provider. Medications: Your medication list has been reviewed and reconciled upon discharge to ensure accuracy and continuity of care. An updated list of all your medications is included with your hospital discharge paperwork. Please review this list closely, and make note of any changes. We sent a new medication called Eliquis to your pharmacy. Take Eliquis (5mg) one tablet twice daily. We sent a new medication called metoprolol to your pharmacy. Take metoprolol (25mg) one tablet daily. We sent a new medication called furosemide to your pharmacy. Take furosemide (20mg) one tablet daily. If you have any issues filling these prescriptions, please call [phone] and ask to leave a message for Dr. Kam Varela. Take your medications as instructed; do not skip a dose of your medicines. Make sure all of your doctors know every medicine you are taking (including qgli-hss-xusisoz medicines, vitamins, and supplements). Call your primary care provider before taking any new medicines (including mumw-pai-vhqyjwh medicines, vitamins, and supplements), because some of these may interact with your current medications, or may make your symptoms worse. Tell your primary care provider if you cannot afford your medications. CONTACT YOUR PRIMARY CARE PROVIDER or MEDICAL AFFAIRS MANAGER if you experience any of the following: Shortness of breath Palpitations Difficulty following your treatment plan, or difficulty taking medications CALL 911 OR GO TO THE EMERGENCY DEPARTMENT if you experience any of the following: Sudden, severe abdominal pain or nausea/vomiting Severe chest pain, or chest pain that radiates (moves) to your jaw or arm Sudden, severe shortness of breath or difficulty breathing Thank you for allowing us to participate in your care. Pending Studies at Discharge: No Stand-Alone Forms: My [facility] App[employer]eem, Smoking Cessation Medications and DC Order Prescriptions: New Eliquis 5 mg tablet 5 mg PO Q12H Qty: 60 0RF metoprolol succinate 25 mg tablet extended release 24 hr 25 mg PO DAILY Qty: 30 0RF furosemide 20 mg tablet 20 mg PO DAILY Qty: 30 0RF Continued lisinopril 20 mg tablet 20 mg PO DAILY Rx Instructions: filled 06/08/24 90 day supply Discharge Orders: Discharge Order (Routine); Ordered 07/30/24 Ordered By: Kristal Del Valle Admission Data Admit Date/Time: 07/26/24 13:49 Attending Provider: Nikolas Dinh Admit Provider: Kam Varela Primary Care Provider: Jay Vega. Other Providers: Gregorio Mohan; Nikolas Dinh; Belinda Olsen; Irma Méndez; Fatoumata Ureña; Yolette Gagnon; Charles Aguiar; Tanmay Burks; Edward Vance; Christiano Frye; Sidra Bocanegra; Shane Mcconnell; Pedro Pablo Garcia; Moo Waddell; Rox Perea; Dane Hyman; Shellie Hyman; Jayden Bautista; Alicia Bell; Lenard Nelson; Hina Sheldon; Evelyne Schuler; Jerel Carreon; Danni Farah; Linda Gonzalez; Kim Frias; Brenda Mancuso; Juan Miguel Mancuso V; Franco Lockwood; Irma Acosta; Andreas Isabel; Mei Connor; Juan Miguel López; Hernán Perea; Eduar Campuzano; Dee Bruno; Isabella Bishop; Juan Miguel Ramey; Sid Mckeon; Adela Hankins; Shayan De La Cruz; Bethany Magana; Tammy Robles; Gregorio Ac; Eze Hines; Salome Chen; Edward Cárdenas; Trudy Baez; Shikha Rosales; Gary Solano; Bello Villalta; Charles Salazar Jr; Lala Bose; Chelo Hopson A.; Emily Bustos; Jerel Castle; Gregor Huerta; Chelo Liu; Yuriy Murdock; Swapnil Barrios; Jeffry Ellsworth; Cole Lucas; Joni Baltazar; Ulises Mcdonough; Kayy Hagen; Yuliet Almeida; Yisel Hernández; Maddie Roland; Enzo Winter Jr; Courtney Willis; Danni Newby; Saroj Jones Other Interventions: Discharge Summary Assessment (RN) Last Done: 07/30/24 09:49 Supervising Physician Co-Signing Physician Notes ATTESTATION I also saw the patient with the resident and medical student and confirmed huntley portions of the history and exam. I agree with the impression and plan in the resident documentation, and as summarized below. I also personally discussed the plan of care with cardiology. No complaints this morning. Feels well. Discussed needed follow up. EXAM Rate around mid 80s, regular A/O, NAD. CV regular rhythm Respirations non labored, Lungs CTA DATA Labs Hgb 12.8 Imaging Echo with decreased EF (25-30%) IMPRESSION & PLAN A-flutter S/P cardioversion Acute on chronic heart failure with reduced ejection fraction Cardiomyopathy Tobacco Abuse HTN ETOH use Discussed lifestyle modifications to decrease overall cardiovascular risk Eliquis 5 mg BID; duration will to be determined by clinical course Toprol 25 mg XL tonight; discussed potential for orthostatic hypotension; if occurs, could decrease lisinopril Lasix 20 mg daily; if ef improves, may be able to discontinue in future. Outpatient cardiology follow up and repeat echocardiogram; could be candidate for ablation in future. Additional per resident documentation Resident Activity Tracking Resident Involvement: Resident Care Provided Care Provided: Adult Hospital Medicine
--- NOTE | 2024-07-31 14:53 | Electrocardiogram Report ---
Test Reason : Blood Pressure : */* mmHG Vent. Rate : 150 BPM Atrial Rate : * BPM P-R Int : * ms QRS Dur : 136 ms QT Int : 326 ms P-R-T Axes : * -9 196 degrees QTcB Int : 515 ms Atrial flutter with 2 to 1 block Non-specific intra-ventricular conduction block T wave abnormality, consider inferior ischemia Abnormal ECG When compared with ECG of 28-Jul-2024 06:05, (unconfirmed) No significant change Confirmed by Analia Roach ([id number]) on 07/31/2024 2:53:30 PM Referred By: REFERRED SELF Confirmed By: Analia Roach
--- NOTE | 2024-07-31 15:00 | Electrocardiogram Report ---
Test Reason : Blood Pressure : */* mmHG Vent. Rate : 100 BPM Atrial Rate : 100 BPM P-R Int : 158 ms QRS Dur : 82 ms QT Int : 374 ms P-R-T Axes : 41 3 80 degrees QTcB Int : 482 ms Normal sinus rhythm Left atrial enlargement Prolonged QT Abnormal ECG When compared with ECG of 29-Jul-2024 05:55, (unconfirmed) Sinus rhythm has replaced Atrial flutter with 2 to 1 block Vent. rate has decreased by 50 bpm Confirmed by Analia Roach ([id number]) on 07/31/2024 2:59:34 PM Referred By: REFERRED SELF Confirmed By: Analia Roach
--- NOTE | 2024-07-31 15:47 | XCELERA ---
[id number]
== END 2024-07-30 10:13 | disposition home or self-care (01) | DRG 308 ==
LOC: ED 11:08 → 4W 13:49